=== PATIENT | female | born 1995 | race African-American/Black ===

== ENCOUNTER 2017-09-08 15:00 | Emergency (ER) | payer SELFPAY | END 2017-09-08 15:56 | disposition home or self-care (01) | LOC: ERS 15:00 | DX: J11.1 Influenza due to unidentified influenza virus with other respiratory manifestations (principal); B20 Human immunodeficiency virus [HIV] disease | CPT/HCPCS: 99283 ==

== ENCOUNTER 2019-07-23 15:17 | Emergency (ER) | payer OTHER ==
[2019-07-23] MEDS ORDERED: Lorazepam 2 MG/ML VIAL ONE (15:39)
[2019-07-23] MEDS ORDERED: Morphine 4 MG/ML VIAL ONE (15:40)
[2019-07-23 16:02] LABS: #Eosinphils 0.2 thou/uL (0.0-0.7); #Lymphocytes 1.5 thou/uL (1.20-3.40); #Monocytes 0.6 thou/uL (0.11-0.59); #Neutrophils 2.8 thou/uL (1.40-6.50); %Basophils 0.6 % (0.0-1.0); %Eosinophils 3.1 % (0.0-10.0); %Neutrophils 55.3 % (42.0-75.0); Hemoglobin 11.7 g/dL (12.0-16.0); Mean Corpuscular HGB CONC 33.6 g/dL (32.0-36.0); Mean Corpuscular Hemoglobin 30.2 pg (27.0-31.0); Mean Corpuscular Volume 89.9 fL (78.0-98.0); Mean Platelet Volume 6.6 fL (7.4-10.4); Platelet Count 299 thou/uL (130-400); RBC Distribution Width 12.3 % (11.5-14.5); Red Blood Cell (RBC) Count 3.89 mill/uL (4.20-5.40); White Blood Cell (WBC) Count 5.1 thou/uL (4.8-10.8)
[2019-07-23 16:12] LABS: Bilirubin Negative (Negative); Blood, Urine Negative (Negative); Clarity Turbid (Clear); Glucose, Urine (Dipstick) Normal (Negative); Leukocyte 75 Leu/uL (Negative); Nitrite Negative (Negative); Protein, Urine (Dipstick) 10 mg/dL (Neg-Trace); RBC/HPF 0-3 HPF (0-3); Urobilinogen Normal mg/dL (Less than 2)
[2019-07-23 16:16] LABS: Bacteria/HPF 1+ HPF (None Seen)
[2019-07-23 16:23] LABS: ALT (SGPT) Less than 7 U/L (8-55); AST (SGOT) 11 U/L (5-34); Albumin 3.8 g/dL (3.5-5.0); Alkaline Phosphatase 42 U/L (40-110); Anion Gap 10 mmol/L (10-20); BUN (Urea Nitrogen) 9 mg/dL (7.0-18.7); Bilirubin, Total Less than 0.2 mg/dL (0.2-1.2); Calc. Creatinine Clearance 0 mL/min (70-130); Calcium 9.4 mg/dL (7.8-10.44); Carbon Dioxide 24 mmol/L (22-29); Chloride 105 mmol/L (98-107); Estimated GFR-MDRD Greater than 90; Globulin 3.1 g/dL (2.4-3.5); Glucose 104 mg/dL (70-105); Lipase 14 U/L (8-78); Potassium 3.8 mmol/L (3.5-5.1); Protein, Total 6.9 g/dL (6.0-8.3); Sodium 135 mmol/L (136-145)
[2019-07-23] MEDS ORDERED: Mag-Al 1200 mg/1200 mg/30 ML UDCUP ONE (17:08)
[2019-07-23] MEDS ORDERED: Lidocaine Viscous Sol 2% 15 ml UD Cup ONE (17:08)
--- NOTE | 2019-07-23 17:19 | ULT ---
RIGHT UPPER QUADRANT ULTRASOUND: 07/23/19 HISTORY: Right upper quadrant pain. FINDINGS: The liver, gallbladder, and pancreas appear normal. There is mild right sided hydronephrosis. No free fluid is seen in the area of Waggoner's pouch. The common duct measures 2 mm in diameter. IMPRESSION: Mild right hydronephrosis. Otherwise unremarkable exam. POS: [facility]
== END 2019-07-23 18:36 | disposition home or self-care (01) ==
LOC: ERS 15:17
DX: O99.89 Other specified diseases and conditions complicating pregnancy, childbirth and the puerperium (principal); R10.13 Epigastric pain; O98.712 Human immunodeficiency virus [HIV] disease complicating pregnancy, second trimester
CPT/HCPCS: 36415; 76705; 80053; 81003; 81015; 83690; 85025; J2060; J2270

== ENCOUNTER 2019-12-12 18:00 | Inpatient (IN) | payer OTHER ==
--- NOTE | 2019-12-12 14:28 | PDOC.LDHP ---
Labor and Delivery H&P Chief complaint: scheduled induction HPI: 24 y/o AAF A1 at 38-39 weeks were HIV infection. Has had an uncomplicated course. recent viral load PCR undetectable. is on HIV maintenance med Biktarvy 50-200-25 daily...Normal serial félix ultrasounds. Dating criteria: last menstrual period Grav: 2 Para: 0 Current complications: other (HIV+) Abnormal US findings: No Current medications: pre- vitamins, other (Biktarvy 50-200-25) Social history: none - OB Labs Blood type: A RH: positive Antibody Screen: negative HIV: positive RPR: negative HEPSAg: negative 1 hour GCT: negative GBS: negative (AZT intrapartum prophylaxis.) - Assessment L&D Assessment: medically indicated induction - Plan Plan: admit to L&D, cervical ripening, labor augmentation if indicated, other
[~2019-12-12 18:00] MED LIST: Bupivacaine/Epinephrine 0.25% 30 ML VIAL ONE; Zidovudine 200 MG/20 ML VIAL IVPB SCH
[2019-12-12] MEDS ORDERED: hydrALAZINE 20 MG/ML VIAL SLOW IVP PRN (18:21)
[2019-12-12] MEDS ORDERED: Acetaminophen 500 MG TAB PO PRN (18:21)
[2019-12-12] MEDS ORDERED: Misoprostol 200 MCG TAB PR PRN (18:21)
[2019-12-12] MEDS ORDERED: Ibuprofen 800 MG TAB PO PRN (18:21)
[2019-12-12] MEDS ORDERED: NS / Oxytocin 40 units/1000ml 1,000 ML IV PRN (18:21)
[2019-12-12] MEDS ORDERED: HYDROcodone/Acetaminophen 5/325 mg Tablet PO PRN (18:21)
[2019-12-12] MEDS ORDERED: Ondansetron PF 4 MG/2 ML Vial IVP PRN (18:21)
[2019-12-12] MEDS ORDERED: Zolpidem Tartrate 5 MG TAB PO PRN (18:21)
[2019-12-12] MEDS ORDERED: Lidocaine 1% (PF) 30 ML VIAL SC PRN (18:21)
[2019-12-12] MEDS ORDERED: Promethazine HCl 25 MG/ML VIAL IM PRN (18:21)
[2019-12-12] MEDS ORDERED: Diphenoxylate HCl/Atropine Tablet PO PRN (18:21)
[2019-12-12] MEDS ORDERED: Carboprost 250 MCG/ML AMP IM PRN (18:21)
[2019-12-12 18:44] VITALS: BMI 35.0
[2019-12-12 18:44] LABS: Hemoglobin 9.5 g/dL (12.0-16.0); Mean Corpuscular HGB CONC 33.1 g/dL (32.0-36.0); Mean Corpuscular Hemoglobin 28.4 pg (27.0-31.0); Mean Corpuscular Volume 85.8 fL (78.0-98.0); Mean Platelet Volume 6.7 fL (7.4-10.4); Platelet Count 243 thou/uL (130-400); RBC Distribution Width 13.1 % (11.5-14.5); Red Blood Cell (RBC) Count 3.34 mill/uL (4.20-5.40); White Blood Cell (WBC) Count 5.1 thou/uL (4.8-10.8)
[2019-12-12] MEDS: Misoprostol 100 MCG TAB VAG SCH ×2 (19:25→23:42)
[2019-12-12 19:26] LABS: HBSAg Index 0.23 S/CO (0-0.99); Hep B Surf Ag Non-Reactive S/CO (NonReactive); Syphilis Antibody Nonreactive (Nonreactive); Syphilis Antibody Index 0.06 S/CO (<1.00 Non-Reactive)
[2019-12-12] MEDS: Lactated Ringer's 1,000 ML IV SCH ×2 (19:32→23:42)
[2019-12-13] MEDS: Lactated Ringer's 1,000 ML IV SCH ×3 (02:31→10:44)
[2019-12-13] MEDS: Butorphanol Tartrate 1 MG/ML VIAL SLOW IVP PRN ×2 (02:31→09:20)
[2019-12-13] MEDS: Misoprostol 100 MCG TAB VAG SCH ×2 (05:05→06:10)
[2019-12-13] MEDS ORDERED: Fentanyl 4 mcg/Bup 0.1% Cadd 100 ML ONE ×2 (09:12→17:23)
[2019-12-13] MEDS ORDERED: Promethazine HCl 25 MG/ML VIAL IM PRN ×5 (09:58→22:48)
[2019-12-13] MEDS ORDERED: Acetaminophen 325 MG TAB PO PRN (09:58)
[2019-12-13] MEDS ORDERED: Ondansetron PF 4 MG/2 ML Vial IVP PRN ×4 (09:58→22:48)
[2019-12-13] MEDS ORDERED: Lactated Ringer's 500 ML IV PRN (09:58)
[2019-12-13] MEDS ORDERED: EPHEDRINE 25 MG/5 ML SYRINGE SLOW IVP PRN (09:58)
[2019-12-13] MEDS ORDERED: Naloxone HCl 0.4 mg/ml Vial IVP PRN ×4 (09:58→19:24)
[2019-12-13] MEDS ORDERED: diphenhydrAMINE 50 MG/ML VIAL IVP PRN ×3 (09:58→22:48)
[2019-12-13] MEDS ORDERED: Fentanyl 4 mcg/Bupivacaine 0.1% Cassette 100 ML EPIDURAL SCH (10:00)
[2019-12-13] MEDS ORDERED: Communication Order-Pharmacy FS SCH ×2 (10:00→19:30)
[2019-12-13] MEDS ORDERED: Dextrose 5%-Lactated Ringers 1,000 ML IV SCH (11:00)
[2019-12-13] MEDS ORDERED: Lactated Ringer's 1,000 ML IV SCH (11:00)
[2019-12-13] MEDS: DEXTROSE 5% IVPB SCH ×4 (11:01→15:10)
[2019-12-13] MEDS: ZIDOVUDINE IVPB SCH ×4 (11:01→15:10)
[2019-12-13] MEDS: WATER IVPB SCH ×4 (11:01→15:10)
[2019-12-13] MEDS: NS w/ Oxytocin 10 units 500 ML IV SCH (12:01)
--- NOTE | 2019-12-13 14:10 | PDOC.LDPN ---
Labor & Delivery Progress Note - Subjective Subjective: comfortable - Objective Vital signs reviewed and normal: yes General: NAD, resting Uterine fundus: non tender Dilation: 2 Effacement: 50% Station: -2 FHT: category 1 AROM: clear fluid Plan: continue plan of care
[2019-12-13] MEDS ORDERED: WATER IVPB SCH (16:00)
[2019-12-13] MEDS ORDERED: DEXTROSE 5% IVPB SCH (16:00)
[2019-12-13] MEDS ORDERED: ZIDOVUDINE IVPB SCH (16:00)
[2019-12-13] MEDS ORDERED: Lidocaine 2% MPF 10 ML AMP (For Epidural Use) ONE (18:50)
[2019-12-13] MEDS ORDERED: Oxytocin 10 UNITS/ML VIAL ONE (18:50)
[2019-12-13] MEDS ORDERED: Ondansetron PF 4 MG/2 ML Vial ONE ×2 (18:50→21:01)
[2019-12-13] MEDS ORDERED: EPINEPHrine 1 MG/ML AMP ONE (18:50)
[2019-12-13] MEDS ORDERED: Lidocaine 2% 10 ML INJ ONE (18:52)
[2019-12-13] MEDS ORDERED: MORPHINE 5 MG/10 ML PF VIAL ONE ×2 (19:00→20:28)
[2019-12-13] MEDS ORDERED: CEFAZOLIN 2 GM in Premix Bag 1 BAG IVPB SCH ×2 (19:00→19:30)
[2019-12-13] MEDS ORDERED: Azithromycin 500 MG in Sodium Chloride 0.9% 250 ML 250 ML IVPB SCH (19:00)
[2019-12-13] MEDS ORDERED: Bicitra 30 ML UDCUP PO SCH (19:00)
[2019-12-13] MEDS ORDERED: Fentanyl 100 MCG/2 ML VIAL ONE (19:03)
--- NOTE | 2019-12-13 19:08 | PDOC.EVN ---
Event Note - Event Note Event Note: patient is /. Has been experiencing recurrent late decelerations. Unable to run pitocin. Patient is pitocin dependent.n in light of persistent non reassuring heart rate tracing, will proceed with primary section..
[2019-12-13] MEDS ORDERED: Ondansetron HCl/PF 4 MG/2 ML Vial IVP PRN (19:23)
[2019-12-13] MEDS ORDERED: Promethazine HCl 25 MG/ML VIAL SLOW IVP PRN (19:23)
[2019-12-13] MEDS ORDERED: Promethazine HCl 25 MG SUPP PR PRN ×2 (19:24→22:48)
[2019-12-13] MEDS ORDERED: Naloxone HCl 0.4 mg/ml Vial IV PRN ×4 (19:24→22:48)
[2019-12-13] MEDS ORDERED: Ketorolac Tromethamine 30 MG/ML VIAL IVP PRN ×2 (19:24→22:48)
[2019-12-13 20:06] LABS: Actual Bicarbonate (HCO3v) 23 mEq/L (22-28); Base Excess -5.3 mEq/L (-2.0 to +3.0)
[2019-12-13 20:08] LABS: Actual Bicarbonate (HCO3a) 23.6 mEq/L (22-28); Base Excess (BEa) -6.5 mEq/L (-2.0 to +3.0)
[2019-12-13 20:11] LABS: pH (Cord, venous) 7.23 (7.32-7.43)
[2019-12-13] MEDS ORDERED: Lanolin Ointment 7 GM TUBE TOP PRN (21:25)
[2019-12-13] MEDS ORDERED: Misoprostol 200 MCG TAB PR PRN (21:25)
[2019-12-13] MEDS ORDERED: NS / Oxytocin 40 units/1000ml 1,000 ML IV SCH (21:25)
[2019-12-13] MEDS ORDERED: HYDROcodone/Acetaminophen 5/325 mg Tablet PO PRN (21:25)
[2019-12-13] MEDS ORDERED: Methylergonovine 0.2 MG/ML VIAL IM PRN (21:25)
[2019-12-13] MEDS ORDERED: diphenhydrAMINE 25 MG CAP PO PRN (21:25)
[2019-12-13] MEDS ORDERED: hydrALAZINE 20 MG/ML VIAL SLOW IVP PRN (21:25)
[2019-12-13] MEDS ORDERED: Ibuprofen 800 MG TAB PO SCH (22:00)
[2019-12-13] MEDS ORDERED: Hydrocerin (Eucerin) Cream 120 gm Jar TOP PRN (22:48)
[2019-12-13] MEDS ORDERED: NO PO,IM,IV OR SC NARCOTICS FOR 12HR EXCEPT BY ANESTHESIA PO SCH (22:48)
--- NOTE | 2019-12-14 01:13 | OP ---
DATE OF PROCEDURE: 12/13/2019 PREOPERATIVE DIAGNOSES: 1. A 24-year-old female, G1, P0, at 39 weeks. 2. History of human immunodeficiency virus positivity. 3. Status post labor induction with non-reassuring heart rate tracing . POSTOPERATIVE DIAGNOSES: 1. A 24-year-old female, G1, P0, at 39 weeks. 2. History of human immunodeficiency virus positivity. 3. Status post labor induction with non-reassuring heart rate tracing . PROCEDURE PERFORMED: Primary low transverse section without extension. PROFESSOR OF VOICE SURGEON: Yoana Overton MD ANESTHESIA: Epidural. QBL: 345 mL. COMPLICATIONS: None. COUNTS: Correct x2. ANTIBIOTICS: 2 g Ancef and Zithromax 500 mg on-call to OR. FINDINGS: 1. Female , Apgars 8 and 9. weight 5 pounds 5 ounces. Clear amniotic fluid noted. 2. Normal-appearing fallopian tubes, uterus, and ovaries. Pathology would be placenta. DISPOSITION: To recovery room, stable. DESCRIPTION OF PROCEDURE: The patient previously received informed consent in regard to surgery. She was taken back to the operating room, where she received an adequate dosing of her epidural. She was prepped and draped in usual sterile fashion. A Pfannenstiel incision was made in the lower abdomen, was carried down to the fascia. Fascia was nicked in the midline. Fascial incision was extended bilaterally with the use of curved Comer scissors. The rectus fascia was then dissected superiorly and inferiorly off the rectus muscle bellies. The rectus muscle bellies were divided in the midline. Peritoneal cavity was entered. A large Satya O retractor was then placed. Bladder flap was created in usual fashion. A 2-cm hysterotomy incision was made in lower uterine segment. This was extended via finger fractionation. The baby was then delivered in the vertex presentation. Mouth and nares were bulb suctioned on the abdomen. Cord was doubly clamped and cut, and the baby was handed to the pediatric team in attendance. Usual cord blood and cord ABG segment was taken. Placenta was manually extracted. The uterus was curetted of any remaining placental fragments with a dry laparotomy sponge. The hysterotomy incision was then closed with running locking fashion with #1 Monocryl. An additional [id number] stitch in the left angle of the hysterotomy incision was placed for added hemostasis. The pelvis was irrigated, and the hysterotomy incision and noted again to be hemostatic. The Satya O retractor was removed. The uterus was reinspected. Hemostasis was confirmed. The rectus muscle bellies were inspected and noted to be hemostatic prior to fascial closure. The fascia was closed with 0 PDS suture in running continuous fashion x2. Subcutaneous tissue was noted to be hemostatic, and the skin was approximated with cee. The surgery was terminated. No anesthetic or surgical complications occurred. Job ID: [id number]
[2019-12-14] MEDS: Lactated Ringer's 1,000 ML IV SCH ×4 (01:30→21:31)
--- NOTE | 2019-12-14 07:37 | PDOC.PP ---
Post Progress Note Post Day #: 1 Subjective: Doing well this morning, no complaints. PO intake tolerated: yes Flatus: no Ambulation: no Vital Signs (12 hours) Temp Pulse Resp BP Pulse Ox 12/14/19 05:10 98.7 F 81 18 113/72 98 12/14/19 00:10 98.3 F 78 18 123/71 97 12/13/19 22:55 97.7 F 76 18 135/80 97 12/13/19 21:50 97.5 F L 73 18 125/77 95 Weight Weight 217 lb - Physical Examination General: NAD Respiratory: non-labored breathing Abdominal: lochia (normal), no distention, appropriately TTP Fundus firm & at: umbilicus Skin: CS incision dry & intact (dressing) Neurological: no gross focal deficits Psychiatric: A&Ox3, normal affect Result Diagrams: 12/12/19 18:34 Additional Labs: Post Labs Blood Type A POSITIVE 12/12/19 18:34 Hep Bs Antigen Non-Reactive S/CO (NonReactive) 12/12/19 18:34 (1) heart rate non-reassuring affecting management of mother Code(s): O36.8390 - MATERN CARE FOR ABNLT FETL HRT RATE OR RHYM, UNSP TRI, UNSP Status: Acute (2) delivery delivered Code(s): O82 - ENCOUNTER FOR DELIVERY WITHOUT INDICATION Status: Acute (3) HIV (human immunodeficiency virus infection) Code(s): B20 - HUMAN IMMUNODEFICIENCY VIRUS [HIV] DISEASE Status: Acute - Assessment/Plan Continue routine postop day 1 orders. Anticipate d/c tomorrow.
[2019-12-14] MEDS: Prenatal Vitamin 1 TAB PO SCH (07:45)
[2019-12-14] MEDS: Misoprostol 100 MCG TAB VAG SCH ×2 (08:39→08:40)
[2019-12-14] MEDS: NS w/ Oxytocin 10 units 500 ML IV SCH (08:39)
[2019-12-14] MEDS ORDERED: Measles/Mumps/Rubella 10 MCG/0.5 ML VIAL SC ONE (09:00)
[2019-12-14] MEDS ORDERED: Adacel (T-DAP) 0.5 ML SYRINGE IM ONE (09:00)
[2019-12-14] MEDS ORDERED: Varicella virus, LIVE 0.5 ML VIAL SC ONE (09:00)
[2019-12-14 10:39] LABS: Mean Corpuscular HGB CONC 32.3 g/dL (32.0-36.0); Mean Corpuscular Volume 86.6 fL (78.0-98.0); Mean Platelet Volume 6.7 fL (7.4-10.4); Platelet Count 207 thou/uL (130-400); RBC Distribution Width 13.1 % (11.5-14.5); White Blood Cell (WBC) Count 7.7 thou/uL (4.8-10.8)
[2019-12-14] MEDS: Ibuprofen 800 MG TAB PO SCH ×2 (15:55→23:10)
[2019-12-14] MEDS ORDERED: Sodium Chloride 0.9% 10 ML ONE (18:38)
[2019-12-14] MEDS: HYDROcodone/Acetaminophen 5/325 mg Tablet PO PRN (23:10)
[2019-12-14] MEDS: Simethicone Chewable 80 MG TAB PO PRN (23:10)
[2019-12-15] MEDS: Lactated Ringer's 1,000 ML IV SCH ×4 (03:19→20:12)
[2019-12-15] MEDS: Ibuprofen 800 MG TAB PO SCH ×3 (05:54→21:09)
[2019-12-15] MEDS ORDERED: Ibuprofen 800 MG TAB PO SCH (06:00)
--- NOTE | 2019-12-15 06:28 | PDOC.PP ---
Post Progress Note Post Day #: 2 Subjective: Doing well, requets to stay until POD3 PO intake tolerated: yes Flatus: yes Ambulation: yes Vital Signs (12 hours) Temp Pulse Resp BP Pulse Ox 12/15/19 05:55 98.1 F 95 16 132/87 12/14/19 23:05 98.8 F 99 16 127/77 12/14/19 20:30 98.6 F 92 16 124/77 98 Weight Weight 217 lb - Physical Examination Respiratory: non-labored breathing Abdominal: + bowel sounds, lochia, no distention, appropriately TTP Extremities: negative homans (B) Skin: CS incision dry & intact (cee in use), no rash Neurological: no gross focal deficits Psychiatric: A&Ox3, normal affect Result Diagrams: 12/14/19 10:24 Additional Labs: Post Labs Blood Type A POSITIVE 12/12/19 18:34 Hep Bs Antigen Non-Reactive S/CO (NonReactive) 12/12/19 18:34 (1) delivery delivered Code(s): O82 - ENCOUNTER FOR DELIVERY WITHOUT INDICATION Status: Acute (2) HIV (human immunodeficiency virus infection) Code(s): B20 - HUMAN IMMUNODEFICIENCY VIRUS [HIV] DISEASE Status: Acute - Assessment/Plan POD2 doing well. Desires to stay until POD3. Has HIV usual medication at home. Plan for DC tomorrow.
[2019-12-15] MEDS: Prenatal Vitamin 1 TAB PO SCH (09:03)
[2019-12-15] MEDS: Simethicone Chewable 80 MG TAB PO PRN (21:09)
[2019-12-15] MEDS: HYDROcodone/Acetaminophen 5/325 mg Tablet PO PRN (23:07)
[2019-12-16] MEDS: Ibuprofen 800 MG TAB PO SCH ×3 (05:21→21:34)
[2019-12-16] MEDS: HYDROcodone/Acetaminophen 5/325 mg Tablet PO PRN (05:23)
[2019-12-16] MEDS: Prenatal Vitamin 1 TAB PO SCH (08:10)
[2019-12-16] MEDS: Labetalol 100 MG TAB PO SCH ×2 (08:48→21:34)
--- NOTE | 2019-12-16 09:27 | PDOC.PP ---
Post Progress Note Post Day #: 3 Subjective: No PIH sxs. Otherwise; feels well. PO intake tolerated: yes Ambulation: yes Vital Signs (12 hours) Temp Pulse Resp BP BP Pulse Ox 12/16/19 08:48 94 153/87 H 12/16/19 08:13 97.9 F 94 20 153/87 H 99 12/16/19 05:20 98.1 F 81 16 149/95 H 12/15/19 23:42 66 136/79 Weight Weight 217 lb Result Diagrams: 12/14/19 10:24 Additional Labs: Post Labs Blood Type A POSITIVE 12/12/19 18:34 Hep Bs Antigen Non-Reactive S/CO (NonReactive) 12/12/19 18:34 - Assessment/Plan Post op/post day 2-3. Running elevated systolic blood pressures. No severe rang. will begin labetolol 100 mg bid. Reassess response. probable discharge in AM.
[2019-12-16] MEDS: Lactated Ringer's 1,000 ML IV SCH ×2 (13:54→23:44)
[2019-12-16] MEDS: Docusate Calcium (SURFAK) 240 MG CAP PO SCH (16:03)
[2019-12-16] MEDS: Simethicone Chewable 80 MG TAB PO PRN ×2 (16:05→21:34)
[2019-12-16] MEDS ORDERED: Milk Of Magnesia 30 ML UDCUP PO PRN (21:16)
[2019-12-17] MEDS: HYDROcodone/Acetaminophen 5/325 mg Tablet PO PRN (03:36)
[2019-12-17] MEDS: Ibuprofen 800 MG TAB PO SCH (05:25)
[2019-12-17] MEDS ORDERED: cloNIDine 0.1 MG TAB PO PRN (05:56)
[2019-12-17] MEDS ORDERED: Labetalol 100 MG TAB PO SCH ×2 (06:00→21:00)
[2019-12-17] MEDS: Docusate Calcium (SURFAK) 240 MG CAP PO SCH (07:40)
[2019-12-17] MEDS: Prenatal Vitamin 1 TAB PO SCH (07:40)
--- NOTE | 2019-12-17 08:28 | PDOC.PP ---
Post Progress Note Post Day #: 4 Subjective: tolerating diet..No pih symptoms. PO intake tolerated: yes Flatus: yes Ambulation: yes Vital Signs (12 hours) Temp Pulse Resp BP Pulse Ox 12/17/19 07:55 98.3 F 80 20 137/80 97 12/17/19 06:00 75 12/17/19 05:40 75 156/89 H 12/17/19 05:25 73 171/105 H 12/16/19 23:35 98.5 F 85 16 134/78 12/16/19 21:34 90 Weight Weight 217 lb Result Diagrams: 12/14/19 10:24 Additional Labs: Post Labs Blood Type A POSITIVE 12/12/19 18:34 Hep Bs Antigen Non-Reactive S/CO (NonReactive) 12/12/19 18:34 - Assessment/Plan Post op day 4. Had severe range blood pressure this AM 170/105. Asymptomatic. Spontaneously dropped below severe range.Labetolol increase to 200 mg bid. Observe blood pressures this morning, If remains controlled , plan to discharge this afternoon. [facility]onson out on 12/18 with BP check...
[2019-12-17 11:44] VITALS: TEMP 98.1
[2019-12-17 14:34] VITALS: BP 155/88
--- NOTE | 2019-12-18 08:36 | PQF ---
Ayde Liu CYNTHIA A MD [id number] CLINICAL DOCUMENTATION CLARIFICATION FORM: POST DISCHARGE Addendum to original discharge summary date: ____ Late entry note date: __ DATE: 12/18/2019 ATTN: Melinda Cifuentes Please exercise your independent, professional judgment in responding to the clarification form. Clinical indicators are provided on the bottom of this form for your review Please check appropriate box(s): [ ] AIDS /HIV Disease [ x ] Asymptomatic HIV infection status [ ] Non-specific serologic evidence of HIV [ ] Other diagnosis For continuity of documentation, please document condition throughout progress notes and discharge summary. Thank You. CLINICAL INDICATORS - SIGNS / SYMPTOMS / LABS H&P p1 12/11 Dr Crowell 38-39 weeks were HIV infection. Has had an uncomplicated course. Recent Viral load PCR undetectable RISK FACTORS H&P p1 12/11 39 weeks of gestation H&P p1 12/11 - HIV maintenance med Operative report 12/12 s/p CS TREATMENTS: OCT 29 Retrovir 200mg IV OCT 29 Zidovudine 200mg IV OCT 29 IVF NS 1L (This form is maintained as a part of the permanent medical record) 2014 [email or web address]. All Rights Reserved [email or web address]
== END 2019-12-17 13:45 | disposition home or self-care (01) | DRG 788 ==
LOC: L&D 18:17 → 3SW 12-13 22:02
PROVIDERS: ADMIT Obstetrics & Gynecology; ATTEND Obstetrics & Gynecology
PROC: 10D00Z1 Extraction of Products of Conception, Low, Open Approach (ICD-10-PCS; principal; 2019-12-12)
PROC: 10907ZC Drainage of Amniotic Fluid, Therapeutic from Products of Conception, Via Natural or Artificial Opening (ICD-10-PCS; 2019-12-13)
DX: O98.72 Human immunodeficiency virus [HIV] disease complicating childbirth (principal); Z21 Asymptomatic human immunodeficiency virus [HIV] infection status; O76 Abnormality in fetal heart rate and rhythm complicating labor and delivery; Z3A.39 39 weeks gestation of pregnancy; Z37.0 Single live birth; O16.5 Unspecified maternal hypertension, complicating the puerperium
CPT/HCPCS: 36415; 51702; 82805; 85027; 86780; 86850; 86900; 86901; 87340; 88307; J0171; J0456; J0595; J1885; J2001; J2274; J2405; J2590; J3010; J3485; J7050; J7070